=== PATIENT | male | born 1955 | race American Indian/Alaskan Native ===

== ENCOUNTER 2017-10-27 04:43 | Emergency (ER) | payer BC ==
[2017-10-27] MEDS ORDERED: APRESOLINE IV ONE ×2 (04:59→05:15)
[2017-10-27] MEDS ORDERED: ZEMURON IV ONE ×3 (05:00→05:15)
[2017-10-27] MEDS ORDERED: KETALAR IV ONE ×2 (05:00→07:00)
[2017-10-27] MEDS ORDERED: QUELICIN ONE (05:10)
[2017-10-27] MEDS ORDERED: KETALAR ONE (05:10)
[2017-10-27 05:12] LABS: Hematocrit 44.3 % (35.5-45.6); Hemoglobin 14.5 gm/dl (11.8-15.2); Mean Corpuscular HGB Conc 33 % (32-34); Mean Corpuscular Hemoglobin 31 pg (28-32); Mean Corpuscular Volume 94 fl (84-94); Platelet Count 189 K/mm3 (140-440); Red Blood Count 4.74 M/mm3 (3.65-5.03); Red Cell Distribution Width 14.4 % (13.2-15.2)
--- NOTE | 2017-10-27 05:16 | Cat Scan Report ---
FINAL REPORT EXAM: CT HEAD/BRAIN WO CON HISTORY: Altered mental status. TECHNIQUE: Unenhanced axial CT images of the brain were obtained. No prior studies are available for comparison. FINDINGS: There is diffuse generalized volume loss, appropriate for patient's age. There is a large region of acute intraparenchymal hemorrhage centered in the left cerebellar hemisphere, measuring at least 5.2 x 4.5 cm. Portions of the hemorrhage cross the midline to the right cerebellar hemisphere. There is also anterior-inferior extension of hemorrhage on the left side, in the expected region of the left inferior cerebellar peduncle. There is moderate surrounding low-attenuation, indicative of surrounding edema. There is additional subarachnoid hemorrhage in the basilar cisterns and also along the tentorium. There is moderate mass effect, with diffuse effacement of the basilar cisterns, and also flattening of the left posterior margin of the kate. There is no significant right to left midline shift. There is no hydrocephalus. Superimposed patchy periventricular and subcortical low attenuation is seen, in keeping with moderate chronic small vessel ischemic disease. The visualized paranasal sinuses and mastoid air cells are clear. There is no skull fracture or other osseous abnormality. The visualized orbits and globes are grossly unremarkable. These findings were discussed with Dr. Mena at time of interpretation 5:00 a.m. EST 10/27/2017. IMPRESSION: 1. Large region of acute intraparenchymal hemorrhage centered in the left cerebellar hemisphere as described, crossing the midline to the right, with additional anterior extension inferiorly. Moderate surrounding edema. 2. Additional subarachnoid hemorrhage in the basilar cisterns and along the tentorium. 3. Moderate mass effect with diffuse effacement of the basilar cisterns and flattening of the left posterior margin of the kate.
[2017-10-27] MEDS ORDERED: VASELINE LIP THERAPY TP PRN (05:17)
[2017-10-27] MEDS ORDERED: ARTIFICIAL TEARS OPHTH OINT OU PRN (05:17)
[2017-10-27 05:23] LABS: INR 0.97 (0.87-1.13); Partial Thromboplastin Time 31.1 Sec. (24.2-36.6)
[2017-10-27 05:28] LABS: Alanine Aminotransferase 56 units/L (7-56); Albumin 3.8 g/dL (3.9-5); BUN/Creatinine Ratio 15; Blood Urea Nitrogen 12 mg/dL (9-20); Calcium 8.6 mg/dL (8.4-10.2); Hemolysis Index 24
[2017-10-27] MEDS ORDERED: fentaNYL DRIP Premix 2,000 MCG/100 ML BAG IV SCH (06:00)
[2017-10-27] MEDS ORDERED: NACL 0.9% 500 ML IV SCH (06:00)
[2017-10-27] MEDS ORDERED: CARDENE 50 MG in NACL 0.9% 250ML 230 ML IV SCH (06:00)
[2017-10-27] MEDS ORDERED: NACL 0.9% 1000 ML 1,000 ML IV ONE (06:00)
--- NOTE | 2017-10-27 06:04 | Emergency Department Report ---
ED General Adult HPI - General Chief complaint: Neuro Symptoms/Deficit Stated complaint: POSS STROKE Time Seen by Provider: 10/27/17 05:03 Source: family, EMS Mode of arrival: Stretcher Limitations: Altered Mental Status - History of Present Illness Initial comments: History obtained from EMS and the patient's significant other. He arrives in the ER altered. According to EMS, patient woke up this morning at 3 AM feeling like his normal self. He had a sudden onset of horrible headache. This was followed by vomiting and the patient collapsing, unresponsive on the ground. He was emergently transported to [facility] for evaluation. Emergent CT head showed large intracranial hemorrhage. On relation, patient had bilateral pinpoint pupils with agonal respirations. He was emergently intubated. Gag was present on intubation. Per his significant other, he only has a history of hypertension and takes an aspirin. She is unsure whether it is a full dose or baby dose aspirin. - Related Data Previous Rx's Medication Instructions Recorded Last Taken Type Dicyclomine [Bentyl] 10 mg PO QID PRN #20 capsule 02/23/15 Unknown Rx Allergies Allergy/AdvReac Type Severity Reaction Status Date / Time No Known Allergies Allergy Unverified 02/23/15 12:04 ED Review of Systems ROS: Stated complaint: POSS STROKE Other details as noted in HPI Comment: Unobtainable due to pts medical conditions ED Past Medical Hx - Past Medical History Previous Medical History?: Yes Hx Hypertension: Yes - Surgical History Past Surgical History?: No - Social History Smoking Status: Never Smoker - Medications Home Medications: Home Medications Medication Instructions Recorded Confirmed Last Taken Type Dicyclomine [Bentyl] 10 mg PO QID PRN #20 capsule 02/23/15 Unknown Rx ED Physical Exam - General Limitations: Altered Mental Status - Head Head exam: Present: atraumatic, normocephalic - Eye Eye exam: Present: normal appearance (bilateral pinpoint pupils) - Respiratory Respiratory exam: Present: respiratory distress (agonal respirations) - Cardiovascular Cardiovascular Exam: Present: regular rate, normal rhythm - GI/Abdominal GI/Abdominal exam: Present: soft - Neurological Exam Neurological exam: Present: altered - Skin Skin exam: Present: warm, dry, intact ED Course Vital Signs 10/27/17 10/27/17 10/27/17 04:58 05:00 05:15 Temperature 98.1 F 98.1 F Pulse Rate 64 63 77 Respiratory 20 16 16 Rate Blood Pressure 191/102 197/107 178/121 Blood Pressure 197/107 178/121 [Left] O2 Sat by Pulse 99 99 99 Oximetry 10/27/17 10/27/17 05:21 05:25 Temperature Pulse Rate 80 74 Respiratory 16 Rate Blood Pressure 206/112 Blood Pressure 157/94 [Left] O2 Sat by Pulse 100 100 Oximetry - Intubation Sedative: Ketamine Paralytic: Rocuronium Laryngoscope: Regino Size: 3 Assist Device Used: Bougie ET Tube Size: 8 Tube Secured Depth (cm): 22 Tube Secured Location: teeth Tube Placement Confirmation: visualized tube passing t, equal breath sounds bilat, confirmation by capnometr Patient Tolerated Procedure: no complications Intubation Complications: none ED Medical Decision Making - Lab Data Result diagrams: 10/27/17 05:00 10/27/17 05:00 Lab Results 10/27/17 10/27/17 10/27/17 Range/Units 05:00 05:00 05:00 WBC 12.3 H (4.5-11.0) K/mm3 RBC 4.74 (3.65-5.03) M/mm3 Hgb 14.5 (11.8-15.2) gm/dl Hct 44.3 (35.5-45.6) % MCV 94 (84-94) fl MCH 31 (28-32) pg MCHC 33 (32-34) % RDW 14.4 (13.2-15.2) % Plt Count 189 (140-440) K/mm3 Lymph # [employer] PT 13.4 (12.2-14.9) Sec. INR 0.97 (0.87-1.13) APTT 31.1 (24.2-36.6) Sec. Sodium 138 (137-145) mmol/L Potassium 3.7 (3.6-5.0) mmol/L Chloride 102.8 (98-107) mmol/L Carbon Dioxide 22 (22-30) mmol/L Anion Gap 17 mmol/L BUN 12 (9-20) mg/dL Creatinine 0.8 (0.8-1.5) mg/dL Estimated GFR > 60 ml/min BUN/Creatinine Ratio 15 % Glucose 188 H (75-100) mg/dL Calcium 8.6 (8.4-10.2) mg/dL Total Bilirubin 0.30 (0.1-1.2) mg/dL AST 48 H (5-40) units/L ALT 56 (7-56) units/L Alkaline Phosphatase 86 (35-129) units/L Total Protein 7.2 (6.3-8.2) g/dL Albumin 3.8 L (3.9-5) g/dL Albumin/Globulin Ratio 1.1 % Vital Signs 10/27/17 10/27/17 10/27/17 04:58 05:00 05:15 Temperature 98.1 F Pulse Rate 64 63 77 Respiratory 20 Rate Blood Pressure 191/102 197/107 178/121 O2 Sat by Pulse 99 Oximetry 10/27/17 05:21 Temperature Pulse Rate 80 Respiratory Rate Blood Pressure 206/112 O2 Sat by Pulse 100 Oximetry - Radiology Data Radiology results: report reviewed, image reviewed - Medical Decision Making 62-year-old male with past medical history of hypertension that presents with altered mental status. Patient with a GCS less than [address] head shows 5 x 5 cm intraparenchymal bleed with mass effect with SAH. Patient was emergently intubated for agonal respirations and thyroid resection. See procedure note for details. He is given hydralazine and carting with a goal systolic blood pressure less than 160. I spoke with Dr. Romeo, who said that it was okay to send the patient to [facility]. Labs unremarkable. Per Dr. Romeo will not give platelets. Pt remained hemodynamically stable in the ER. Critical care attestation.: If time is entered above; I have spent that time in minutes in the direct care of this critically ill patient, excluding procedure time. Critical Care Time: 67 minutes ED Disposition Clinical Impression: Intracranial hemorrhage Disposition: DC/TX-70 ANOTHER TYPE HLTHCARE Is pt being admited?: No Condition: Stable Referrals: SAMARA SCHULZ MD [Primary Care Provider] - 3-5 Days
[2017-10-27 07:01] VITALS: BP 118/61
[2017-10-27 07:19] LABS: Anisocytosis 1+; Basophils % (Manual) 0 % (0.0-1.8); Total Cells Counted 100
[2017-10-27] MEDS ORDERED: APRESOLINE ONE (07:24)
--- NOTE | 2017-10-27 07:28 | XRay Report ---
FINAL REPORT EXAM: XR CHEST 1V AP HISTORY: ETT placement TECHNIQUE: AP portable view(s) of the chest obtained. PRIORS: None. FINDINGS: Endotracheal tube terminates approximately 5-7 cm from the pedro luis on separate views. No mediastinal shift. Cardiac silhouette is not enlarged. No pneumothorax, effusion, or focal pulmonary opacity identified. No acute skeletal findings. IMPRESSION: Endotracheal tube terminates approximately 5-7 cm from the pedro luis on the 2 separate AP views. No pneumothorax.
== END 2017-10-27 07:12 | disposition other institution (70) ==
LOC: ED 04:43
DX: I61.9 Nontraumatic intracerebral hemorrhage, unspecified (principal); I10 Essential (primary) hypertension
CPT/HCPCS: 31500; 36415; 70450; 71045; 80053; 82803; 85007; 85025; 85610; 85730; 96365; 96375; 99291; J0330; J0360; J7030; J7050; 94002

== ENCOUNTER 2018-12-10 10:11 | Outpatient (CLI) | payer MEDICARE ==
[2018-12-10 10:40] LABS: Hematocrit 42.9 % (35.5-45.6); Hemoglobin 14.3 gm/dl (11.8-15.2); Mean Corpuscular HGB Conc 33 % (32-34); Mean Corpuscular Volume 94 fl (84-94); Platelet Count 198 K/mm3 (140-440); Red Blood Count 4.57 M/mm3 (3.65-5.03); Red Cell Distribution Width 14.8 % (13.2-15.2)
[2018-12-10 11:06] LABS: Alanine Aminotransferase 50 units/L (7-56); Albumin 3.9 g/dL (3.9-5); BUN/Creatinine Ratio 10; Blood Urea Nitrogen 10 mg/dL (9-20); Calcium 9.2 mg/dL (8.4-10.2); Hemolysis Index 5; LDL Cholesterol,Direct 74 mg/dL (50-130)
[2018-12-10 11:32] LABS: Chol/HDL Ratio 2.95 %; HDL Cholesterol 41 mg/dL (40-59)
[2018-12-14 15:02] LABS: Vitamin D, 25-OH, D2 <4 ng/mL
== END 2018-12-10 10:12 | disposition home or self-care (01) ==
LOC: LAB 10:11
PROVIDERS: ATTEND Internal Medicine
DX: E11.65 Type 2 diabetes mellitus with hyperglycemia (principal); E55.9 Vitamin D deficiency, unspecified; N40.1 Benign prostatic hyperplasia with lower urinary tract symptoms; E78.2 Mixed hyperlipidemia; R53.83 Other fatigue; I10 Essential (primary) hypertension
CPT/HCPCS: 36415; 80053; 80061; 82306; 83036; 84153; 84443; 85027

== ENCOUNTER 2019-10-05 10:26 | Emergency (ER) | payer MEDICARE ==
[2019-10-05] MEDS ORDERED: ONDANSETRON 4 MG/2 ML INJ IV ONE (11:17)
[2019-10-05] MEDS ORDERED: MORPHINE 4 MG/1 ML INJ IV ONE (11:17)
--- NOTE | 2019-10-05 11:22 | Emergency Department Report ---
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 Patient had surgery done by Dr. Gentry Cano in [facility]. Patient presented to the ER today complaining of headache, occipital, throbbing, 4 out of 10 in severity. Patient stated that he is having some blurry vision and some dizziness also. Patient stated that he noticed his blood pressure was really high the last 2 days. stated that his blood pressure was 190/110. She stated that he is not taking his medication as opposed to. Patient stated that this symptom is similar to what he had when his blood pressure is high. Patient denied any new weakness, numbness or tingling sensation. No neck pain, chest pain or shortness of breath. Timing/Duration: 1-3 hours Quality: moderate Head Injury Location: occipital Recent Head Trauma: no recent headache/trauma Associated Symptoms: denies symptoms Allergies/Adverse Reactions: Allergies No Known Allergies Allergy (Unverified 02/23/15 12:04) Home Medications: Ambulatory Orders Dicyclomine [Bentyl] 10 mg PO QID PRN #20 capsule 02/23/15 ED Review of Systems ROS: Stated complaint: HBP/DIZZY/HEADACHE Other details as noted in HPI Comment: All other systems reviewed and negative Constitutional: denies: chills, fever Respiratory: denies: cough, shortness of breath, SOB with exertion, wheezing Cardiovascular: denies: chest pain Gastrointestinal: denies: abdominal pain, nausea, vomiting Musculoskeletal: denies: back pain Neurological: headache. denies: weakness, numbness, paresthesias, confusion, abnormal gait ED Past Medical Hx - Past Medical History Previous Medical History?: Yes Hx Hypertension: Yes Hx CVA: Yes (hemorrhagic) Hx Arthritis: Yes - Surgical History Past Surgical History?: Yes Additional Surgical History: aneurysm repair - Social History Smoking Status: Former Smoker Substance Use Type: None - Medications Home Medications: Home Medications Medication Instructions Recorded Confirmed Last Taken Type Dicyclomine [Bentyl] 10 mg PO QID PRN #20 capsule 02/23/15 Unknown Rx ED Physical Exam - General Limitations: Physical Limitation General appearance: alert, in no apparent distress - Head Head exam: Present: atraumatic, normocephalic, normal inspection - Eye Eye exam: Present: normal appearance - ENT ENT exam: Present: normal exam, normal orophraynx, mucous membranes moist - Neck Neck exam: Present: normal inspection, full ROM. Absent: tenderness, meningismu s, lymphadenopathy, thyromegaly - Respiratory Respiratory exam: Present: normal lung sounds bilaterally - Cardiovascular Cardiovascular Exam: Present: regular rate, normal rhythm, normal heart sounds - GI/Abdominal GI/Abdominal exam: Present: soft, normal bowel sounds. Absent: distended, tenderness, guarding, rebound, rigid, organomegaly, mass, bruit, pulsatile mass, hernia - Extremities Exam Extremities exam: Present: normal inspection, full ROM, normal capillary refill. Absent: tenderness, pedal edema, calf tenderness - Back Exam Back exam: Present: normal inspection, full ROM. Absent: CVA tenderness (R), CVA tenderness (L), muscle spasm, paraspinal tenderness, vertebral tenderness - Neurological Exam Neurological exam: Present: alert, oriented X3, CN II-XII intact, normal gait, reflexes normal - Psychiatric Psychiatric exam: Present: normal mood - Skin Skin exam: Present: warm, intact, normal color ED Course Vital Signs 10/05/19 10/05/19 10:30 12:20 Temperature 97.8 F Pulse Rate 94 H Respiratory 20 16 Rate Blood Pressure 146/94 O2 Sat by Pulse 99 Oximetry ED Medical Decision Making - Lab Data Result diagrams: 10/05/19 11:11 10/05/19 11:11 - Radiology Data Radiology results: report reviewed - Medical Decision Making Patient is 64-year-old male with history of hypertension and 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 Patient had surgery done by Dr. Gentry Cano in [facility]. Patient presented to the ER today complaining o f headache, occipital, throbbing, 4 out of 10 in severity. Patient stated that he is having some blurry vision and some dizziness also. Patient stated that he noticed his blood pressure was really high the last 2 days. stated that his blood pressure was 190/110. She stated that he is not taking his medication as opposed to. Patient stated that this symptom is similar to what he had when his blood pressure is high. Patient denied any new weakness, numbness or tingling sensation. No neck pain, chest pain or shortness of breath. Patient received morphine and Zofran. Patient stated that he is feeling much better. His headaches completely resolved. CT brain showed no acute abnorma lity. Labs reviewed and is unremarkable. No clinical or CT evidence of stroke. Patient advised to follow-up with his primary care physician in the next 2 to 3 days and to return to the ER if he develop any new symptoms. Critical care attestation.: If time is entered above; I have spent that time in minutes in the direct care of this critically ill patient, excluding procedure time. ED Disposition Clinical Impression: Headache, Hypertensive urgency Disposition: DC-01 TO HOME OR SELFCARE Is pt being admited?: No Condition: Stable Instructions: Hypertension (ED), Acute Headache (ED) Referrals: LUZ MARIA HOBBS MD [Staff Physician] - 3-5 Days
--- NOTE | 2019-10-05 11:26 | Cat Scan Report ---
CT BRAIN: WITHOUT CONTRAST INDICATION / CLINICAL INFORMATION: headache, dizziness, blurry vision. COMPARISON: 10/27/2017 FINDINGS: BRAIN/INTRACRANIAL STRUCTURES: Unenhanced CT images of the brain were obtained and compared to prior exam from 10/27/2017. On the prior exam, there is a large left cerebellar hematoma. There has been interval left suboccipit al craniectomy. Previously seen hemorrhage is no longer present. There is now extensive encephalomala lat[place] in the left cerebellar hemisphere. There is no evidence of acute abnormality. Ventricles and sulci are prominent in size, consistent wit h diffuse cerebral atrophy. Extensive chronic white matter hypoattenuation is present. There is evidence of right frontal balbina hole, which was not present at the time of the prior exam. As sociated right frontal parenchymal encephalomalacia is present, possibly due to prior shunt placement . There are no abnormal extra-axial fluid collections. EXTRACRANIAL STRUCTURES: Unremarkable. IMPRESSION: No acute abnormality. Chronic and age-related changes. Posterior fossa postoperative change. All CT scans at this location are performed using dose reduction to ALARA by means of automated expos ure control. Signer Name: Srikanth Barrow MD Signed: 10/05/2019 11:22 AM Workstation Name: [id number]
[2019-10-05 11:58] LABS: Basophils % (Auto) 0.3 % (0.0-1.8); Eosinophils # (Auto) 0.2 K/mm3 (0.0-0.4); Eosinophils % (Auto) 2.1 % (0.0-4.3); Hematocrit 44.4 % (35.5-45.6); Hemoglobin 14.7 gm/dl (11.8-15.2); Lymphocytes % (Auto) 38.9 % (13.4-35.0); Mean Corpuscular HGB Conc 33 % (32-34); Mean Corpuscular Volume 94 fl (84-94); Monocytes # (Auto) 0.8 K/mm3 (0.0-0.8); Monocytes % (Auto) 10.7 % (0.0-7.3); Platelet Count 203 K/mm3 (140-440); Red Blood Count 4.71 M/mm3 (3.65-5.03); Red Cell Distribution Width 16.8 % (13.2-15.2)
[2019-10-05 12:01] LABS: INR 1.04 (0.87-1.13)
[2019-10-05 12:02] LABS: Partial Thromboplastin Time 35.8 Sec. (24.2-36.6)
[2019-10-05 12:27] LABS: BUN/Creatinine Ratio 13; Blood Urea Nitrogen 16 mg/dL (9-20); Calcium 9.7 mg/dL (8.4-10.2); Hemolysis Index 55
[2019-10-05] MEDS ORDERED: cloNIDine 0.1 MG TAB PO ONE (13:31)
[2019-10-05] MEDS ORDERED: cloNIDine 0.1 MG TAB ONE (13:34)
[2019-10-05 14:39] VITALS: BP 140/99
== END 2019-10-05 14:10 | disposition home or self-care (01) ==
LOC: ED 10:26
DX: I16.0 Hypertensive urgency (principal); R51 Headache; H53.8 Other visual disturbances; I10 Essential (primary) hypertension; M19.90 Unspecified osteoarthritis, unspecified site; Z86.73 Personal history of transient ischemic attack (TIA), and cerebral infarction without residual deficits; Z87.891 Personal history of nicotine dependence; Z79.899 Other long term (current) drug therapy
CPT/HCPCS: 36415; 70450; 80048; 84484; 85025; 85610; 85670; 85730; 93005; 93010; 96374; 96375; 99284; J2270; J2405

== ENCOUNTER 2019-10-08 08:06 | Emergency (ER) | payer MEDICARE ==
[2019-10-08 08:21] VITALS: BP 155/108
[2019-10-08] MEDS ORDERED: oxyCODONE /ACETAMINOPHEN 5-325MG TAB PO ONE (09:22)
--- NOTE | 2019-10-08 09:44 | Emergency Department Report ---
ED Headache HPI - General Chief Complaint: Headache Stated Complaint: HBP/HEADACHE EXTREME Time Seen by Provider: 10/08/19 09:20 Source: patient, family Exam Limitations: no limitations - History of Present Illness Initial Comments: Mr. Mcgraw is a 64-year-old male who presents with right-sided headache. He has history of hypertension, brain aneurysm, hemorrhagic CVA. He has headaches similar once a month. Dull mild 4 out of 10 in severity. Normally headache is related to elevated blood pressure. He did take his clonidine prior to arrival this morning. He was seen for headache over this past weekend. He was concerned that he did not receive a prescription for headache medicine after receiving morphine in the emergency department. He was referred to his primary care physician. According to EMR CT head obtained October 05, 2019 no acute findings Timing/Duration: 1-3 hours Quality: mild Head Injury Location: temporal Recent Head Trauma: occasional headaches Associated Symptoms: denies symptoms Allergies/Adverse Reactions: Allergies No Known Allergies Allergy (Unverified 02/23/15 12:04) Home Medications: Ambulatory Orders Dicyclomine [Bentyl] 10 mg PO QID PRN #20 capsule 02/23/15 HYDROcodone/APAP 5-325 [[place] 5/325] 1 each PO Q6HR PRN #5 tablet 10/08/19 ED Review of Systems ROS: Stated complaint: HBP/HEADACHE EXTREME Other details as noted in HPI Comment: All other systems reviewed and negative Constitutional: denies: fever, malaise Respiratory: denies: cough Cardiovascular: denies: chest pain ED Past Medical Hx - Past Medical History Previous Medical History?: Yes Hx Hypertension: Yes Hx CVA: Yes (hemorrhagic) Hx Arthritis: Yes Additional medical history: Brain aneurysm - Surgical History Past Surgical History?: Yes Additional Surgical History: aneurysm repair - Social History Smoking Status: Never Smoker Substance Use Type: None - Medications Home Medications: Home Medications Medication Instructions Recorded Confirmed Last Taken Type Dicyclomine [Bentyl] 10 mg PO QID PRN #20 capsule 02/23/15 Unknown Rx HYDROcodone/APAP 5-325 [[place] 1 each PO Q6HR PRN #5 tablet 10/08/19 Unknown Rx 5/325] ED Physical Exam - General Limitations: No Limitations General appearance: alert, in no apparent distress, other (Patient appears well smiling jovial no acute distress appears very comfortable) - Head Head exam: Present: atraumatic, normocephalic - Eye Eye exam: Present: normal appearance - ENT ENT exam: Present: mucous membranes moist - Neck Neck exam: Present: normal inspection, full ROM - Respiratory Respiratory exam: Present: normal lung sounds bilaterally. Absent: respiratory distress, wheezes, rales, rhonchi - Cardiovascular Cardiovascular Exam: Present: regular rate, normal rhythm, normal heart sounds. Absent: systolic murmur, diastolic murmur, rubs, gallop - GI/Abdominal GI/Abdominal exam: Present: soft, normal bowel sounds. Absent: distended, tenderness, guarding, rebound - Rectal Rectal exam: Present: deferred - Extremities Exam Extremities exam: Present: normal inspection - Neurological Exam Neurological exam: Present: alert, oriented X3 - Psychiatric Psychiatric exam: Present: normal affect, normal mood - Skin Skin exam: Present: warm, dry, intact, normal color. Absent: rash ED Course Vital Signs 10/08/19 08:15 Temperature 97.7 F Pulse Rate 87 Respiratory 18 Rate Blood Pressure 155/108 [Right] O2 Sat by Pulse 98 Oximetry ED Medical Decision Making - Medical Decision Making Mr. Mcgraw presents with recurrent headache. His has bought purchased a new blood pressure cuff. Both patient and are concerned for elevated blood pr essure readingsat home. I reassured them that the blood pressure of 155/108 here in triage was adequate for the time being. I strongly recommended follow- up with primary care physician. Prescribed 5 tab prescription for [place]. I was reassured by that Mr. Mcgraw has enough clonidine medication at home for the time being. Critical care attestation.: If time is entered above; I have spent that time in minutes in the direct care of this critically ill patient, excluding procedure time. ED Disposition Clinical Impression: Headache Disposition: DC-01 TO HOME OR SELFCARE Is pt being admited?: No Does the pt Need Aspirin: No Condition: Stable Instructions: Tension Headache (ED) Prescriptions: HYDROcodone/APAP 5-325 [[place] 5/325] 1 each PO Q6HR PRN #5 tablet PRN Reason: Pain Referrals: LANI LAMB MD [Staff Physician] - 3-5 Days
== END 2019-10-08 09:57 | disposition home or self-care (01) ==
LOC: ED 08:06
DX: R51 Headache (principal); I10 Essential (primary) hypertension; M19.90 Unspecified osteoarthritis, unspecified site; Z79.899 Other long term (current) drug therapy; Z86.73 Personal history of transient ischemic attack (TIA), and cerebral infarction without residual deficits
CPT/HCPCS: 99282